=== PATIENT | female | born 1990 | race Caucasian/White ===

== ENCOUNTER 2020-06-03 08:41 | Emergency (ER) | payer SELFPAY ==
[~2020-06-03] VITALS: Ht 160 cm; Wt 60.0 kg
[2020-06-03 08:48] VITALS: BP 125/77
[2020-06-03] MEDS ORDERED: TETANUS, DIPHTHERIA, PERTUSSIS VAC/PF 0.5ML (>7YR OLD) IM ONE (09:15)
[2020-06-03] MEDS ORDERED: LIDOCAINE 1%/EPI 1:100,000 10 ML VIAL IJ ONE (09:15)
[2020-06-03] MEDS ORDERED: ACETAMINOPHEN 325MG TABLET PO ONE (09:15)
[2020-06-03] MEDS ORDERED: BACITRACIN ZINC OINT UDPKT TOP ONE (09:15)
[2020-06-03] MEDS ORDERED: LIDOCAINE HCL/EPINEPHRINE 1%-EPI 1:100,000 20 ML VIAL INFIL NR (10:00)
== END 2020-06-03 10:21 | disposition home or self-care (01) ==
LOC: ER 08:41
DX: S61.512A Laceration without foreign body of left wrist, initial encounter (principal); W26.0XXA Contact with knife, initial encounter; Y93.89 Activity, other specified; Y92.89 Other specified places as the place of occurrence of the external cause; Y99.8 Other external cause status
CPT/HCPCS: 12002; 90471; 90715; 99283; Z7610; J3490

== ENCOUNTER 2020-06-05 10:30 | Emergency (ER) | payer SELFPAY ==
[~2020-06-05] VITALS: Ht 160 cm; Wt 58.9 kg
[2020-06-05 11:10] VITALS: BP 110/68
== END 2020-06-05 11:10 | disposition home or self-care (01) ==
LOC: ER 10:30
DX: Z48.00 Encounter for change or removal of nonsurgical wound dressing (principal)
CPT/HCPCS: 99281

== ENCOUNTER 2020-06-17 18:33 | Emergency (ER) | payer SELFPAY ==
[~2020-06-17] VITALS: Ht 160 cm; Wt 60.0 kg
[2020-06-17 19:19] VITALS: BP 114/58
== END 2020-06-17 19:19 | disposition home or self-care (01) ==
LOC: ER 18:33
DX: S61.512D Laceration without foreign body of left wrist, subsequent encounter (principal); Z48.02 Encounter for removal of sutures; X58.XXXD Exposure to other specified factors, subsequent encounter
CPT/HCPCS: 99281